=== PATIENT | female | born 1945 | race Caucasian/White ===

== ENCOUNTER 2019-12-03 08:46 | Emergency (ER) | payer MEDICAID, MEDICARE ==
[2019-12-03] MEDS ORDERED: predniSONE 20 MG TAB PO ONE (10:02)
[2019-12-03] MEDS ORDERED: HYDROcodone 7.5MG/APAP 325MG 1 EA TAB PO ONE (10:02)
--- NOTE | 2019-12-03 10:06 | CT ---
Study: CT of the Head. Indication: headache confusion Technique: Axial CT images of the head were acquired without intravenous contrast. This exam was performed according to our departmental dose-optimization program, which includes automated exposure control, adjustment of the mA and/or kV according to patient size and/or use of iterative reconstruction technique. Comparison: None. Findings: No acute ischemia, acute hemorrhage, mass, mass effect, midline shift, or extra-axial fluid collection identified by CT. Ventricles are normal in configuration without hydrocephalus. Patchy hypoattenuation of the periventricular and subcortical white matter noted. This is nonspecific but most consistent with chronic microvascular ischemic change. Global parenchymal volume loss and intracranial atherosclerosis noted as well. Paranasal sinuses are adequately aerated. Mastoid air cells are adequately aerated. Osseous structures and soft tissues are unremarkable. Impression: No acute intracranial abnormality by CT. Senescent changes. Electronically signed by: Kayden Xie MD 12/03/2019 10:04 AM CDT
--- NOTE | 2019-12-03 10:14 | ED.PDOC ---
History of Present Illness - General Chief Complaint: Headache Stated Complaint: Headache, shoulder pain Time Seen by Provider: 12/03/19 09:02 Source: patient Exam Limitations: no limitations - History of Present Illness Initial Comments: The patient is a 74-year-old female presented emergency room secondary to a headache for the last couple of days that has become more severe along with worsening right shoulder and upper back pain. The patient has chronic DJD of the right shoulder and does have chronic pain from that. The patient has pain to palpation over the right-sided rhomboid muscle and also has spasm of the trapezius. The headache is circumferential. No nausea or vomiting. No definite altered mental state though she does have some dementia. The patient did take a Tylenol 3 this morning. The patient has diffuse tenderness to palpation over the shoulder. Range of motion is actually normal for her however. No palpable crepitus. No bruising. No evidence of any new trauma. No bruising. The right upper extremity is neurovascularly intact. No focal neurological changes that are new. The patient is pleasant and cooperative. She has had a history of sinusitis in the past. No vision changes. No nausea or vomiting. Timing/Duration: 24 hours Severity: moderate Improving Factors: nothing Worsening Factors: nothing Associated Symptoms: headaches Allergies/Adverse Reactions: Allergies Cabbage Allergy (Severe, Verified 12/03/19 09:33) Anaphylaxis Gabapentin [From Neurontin] Allergy (Severe, Verified 12/03/19 09:33) Anaphylaxis Penicillins Allergy (Severe, Verified 12/03/19 09:33) Anaphylaxis Sulfacetamide [From Sulf-10] Allergy (Severe, Verified 12/03/19 09:33) Anaphylaxis Aspirin Allergy (Intermediate, Verified 12/03/19 09:33) Hives Morphine Allergy (Intermediate, Verified 12/03/19 09:33) Rash Naproxen [From Aleve] Allergy (Intermediate, Verified 12/03/19 09:33) Rash Home Medications: Ambulatory Orders HYDROcodone 5MG/APAP 325MG [[place] 5/325] 1 tab PO DAILY 10/15/14 Donepezil Hydrochloride [Aricept] 10 mg PO DAILY 01/21/15 Lisinopril & Hydrochlorothiazi [Lisinopril/Hctz 20-25 mg] 0.5 tab PO DAILY 01/21/15 Memantine [Namenda] 10 mg PO BID 01/21/15 Fish Oil 1000 mg 1,000 mg PO DAILY 05/25/15 Cyclobenzaprine HCl [Flexeril] 10 mg PO TID PRN #20 tab 12/03/19 predniSONE [Prednisone] 20 mg PO DAILY #5 tab 12/03/19 Review of Systems - Review of Systems Constitutional: States: no symptoms reported EENTM: States: no symptoms reported Respiratory: States: no symptoms reported Cardiology: States: no symptoms reported Gastrointestinal/Abdominal: States: no symptoms reported Genitourinary: States: no symptoms reported Musculoskeletal: States: back pain Skin: States: no symptoms reported Neurological: States: headache Endocrine: States: no symptoms reported All other Systems: No Change from Baseline Past Medical History (General) - Patient Medical History Hx Seizures: No Hx Stroke: No Hx Dementia: Yes Hx Asthma: No Hx of COPD: No Hx Cardiac Disorders: Yes Hx Congestive Heart Failure: No Hx Pacemaker: No Hx Hypertension: Yes Hx Diabetes: No Hx MRSA: No Surgical History: no surgical history - Vaccination History Hx Tetanus, Diphtheria Vaccination: Yes Hx Influenza Vaccination: Yes Hx Pneumococcal Vaccination: Yes - Social History Hx Tobacco Use: Yes Hx Alcohol Use: No Hx Substance Use: No Hx Physical Abuse: No Hx Emotional Abuse: No - Female History Patient is a Female of Child Bearing Age (10 -59 yrs old): No Patient : No Family Medical History - Family History Father Family History: No Known Name: Jay Jay Parham Age (years): 78 Living Status: Age at (years of age): 78 Cause of : emphysema Hx Family Asthma: No Hx Family Congestive Heart Failure: No Hx Family Hypertension: Yes - Mother and pt. Hx Family Stroke: No Hx Cardiac Disease: No Hx Family Diabetes: Yes - Grandmother Hx Family Cancer: Yes - brother Prostate CA, CLL multiple myleoma Physical Exam - Physical Exam General Appearance: Alert, No apparent distress Eye Exam: bilateral normal Ears, Nose, Throat: hearing grossly normal, normal pharynx Neck: other - There is some obvious muscle spasm in the right sided trapezius muscle. There is some tenderness at the junction with the occiput. Respiratory: lungs clear, normal breath sounds, no respiratory distress, no accessory muscle use Cardiovascular/Chest: normal peripheral pulses, no edema, other - Regular rate Peripheral Pulses: radial,right: 2+, radial,left: 2+ Gastrointestinal/Abdominal: non tender, soft Rectal Exam: deferred Back Exam: other - See history of present illness. Extremity: normal range of motion - Given her chronic limitations, no pedal edema, no calf tenderness, normal capillary refill, other - See history of present illness. Neurologic: chief cook II-XII nml as tested, alert, normal mood/affect, oriented x 3 Skin Exam: normal color Comments: Vital Signs - 24 hr 12/03/19 09:06 Temperature 98.1 F Respiratory 22 Rate Blood Pressure 176/90 [Left Arm] O2 Sat by Pulse 97 Oximetry Progress - Progress Progress: 12/03/19 10:16 The patient is a 74-year-old presented emergency room with what is most likely a tension headache related to muscle spasm from her chronic right shoulder issues. The patient needs to do stretching exercises for her shoulder as well as her neck. Topical heat in the form of a heat pad or icy hot or Biofreeze may prove beneficial. The patient was given a dose of hydrocodone and prednisone here. She is going to be written for 5 days of oral prednisone which she needs to take in the mornings. She will also be written for some Flexeril for as needed use for the muscle spasm giving her the headache. She can continue her home medications otherwise. She does need to be careful as the Flexeril can potentially make her drowsy. Keep well-hydrated. ER warnings are given for any acute worsening. Keep routine follow-up with primary care doctor. kelvin waters [phone] - Results/Orders Results/Orders: Head CT shows no acute pathology. See report for details. Laboratory Results - last 24 hr 12/03/19 12/03/19 09:05 09:05 WBC 4.0 L RBC 4.20 Hgb 13.5 Hct 40.6 MCV 96.8 MCH 32.2 H MCHC 33.3 RDW 13.4 Plt Count 204 MPV 9.4 Absolute Neuts (auto) 2.10 Absolute Lymphs (auto) 1.50 Absolute Monos (auto) 0.20 Absolute Eos (auto) 0.10 Absolute Basos (auto) 0.00 Neutrophils % 53.8 Lymphocytes % 37.9 Monocytes % 5.4 Eosinophils % 2.1 Basophils % 0.8 Sodium 141 Potassium 3.6 Chloride 107 Carbon Dioxide 27 Anion Gap 10.6 L BUN 15 Creatinine 1.10 BUN/Creatinine Ratio 13.6 Random Glucose 91 Serum Osmolality 281.7 Calcium 9.5 Magnesium 2.2 Total Bilirubin 0.7 AST 16 ALT 10 Alkaline Phosphatase 51 Creatine Kinase 42 CK-MB (CK-2) 0.6 CK-MB (CK-2) % Not Reportable Troponin I < 0.02 Serum Total Protein 7.4 Albumin 4.2 Globulin 3.2 Albumin/Globulin Ratio 1.3 TSH 1.34 Departure - Departure Clinical Impression: Rhomboid muscle strain, Chronic right shoulder pain Tension type headache Qualifiers: Headache chronicity pattern: acute headache Intractability: not intractable Qualified Code(s): G44.209 - Tension-type headache, unspecified, not intractable Disposition: Discharge to Home or Self Care Condition: Fair Departure Forms: ED Discharge - Pt. Copy, Patient Portal Self Enrollment Diet: regular diet Activity: increase activity as tolerated Referrals: Esa Penaloza MD [Primary Care Provider] - 1-2 Weeks Prescriptions: Cyclobenzaprine HCl [Flexeril] 10 mg PO TID PRN #20 tab PRN Reason: Muscle Spasms predniSONE [Prednisone] 20 mg PO DAILY #5 tab Home Medications: Ambulatory Orders HYDROcodone 5MG/APAP 325MG [[place] 5/325] 1 tab PO DAILY 10/15/14 Donepezil Hydrochloride [Aricept] 10 mg PO DAILY 01/21/15 Lisinopril & Hydrochlorothiazi [Lisinopril/Hctz 20-25 mg] 0.5 tab PO DAILY 01/21/15 Memantine [Namenda] 10 mg PO BID 01/21/15 Fish Oil 1000 mg 1,000 mg PO DAILY 05/25/15 Cyclobenzaprine HCl [Flexeril] 10 mg PO TID PRN #20 tab 12/03/19 predniSONE [Prednisone] 20 mg PO DAILY #5 tab 12/03/19 Additional Instructions: The patient is a 74-year-old presented emergency room with what is most likely a tension headache related to muscle spasm from her chronic right shoulder issues. The patient needs to do stretching exercises for her shoulder as well as her neck. Topical heat in the form of a heat pad or icy hot or Biofreeze may prove beneficial. The patient was given a dose of hydrocodone and prednisone here. She is going to be written for 5 days of oral prednisone which she needs to take in the mornings. She will also be written for some Flexeril for as needed use for the muscle spasm giving her the headache. She can continue her home medications otherwise. She does need to be careful as the Flexeril can potentially make her drowsy. Keep well-hydrated. ER warnings are given for any acute worsening. Keep routine follow-up with primary care doctor.
[2019-12-03 10:50] VITALS: BP 164/84; TEMP 97.5; O2SAT 96
== END 2019-12-03 10:35 | disposition home or self-care (01) ==
LOC: ER 08:46
DX: G44.209 Tension-type headache, unspecified, not intractable (principal); S46.911A Strain of unspecified muscle, fascia and tendon at shoulder and upper arm level, right arm, initial encounter; G89.29 Other chronic pain; M25.511 Pain in right shoulder; I10 Essential (primary) hypertension; X58.XXXA Exposure to other specified factors, initial encounter; Y92.9 Unspecified place or not applicable
CPT/HCPCS: 36415; 70450; 80053; 82550; 82553; 83735; 84443; 84484; 85025; J7512